=== PATIENT | female | born 1990 ===

== ENCOUNTER 2017-04-25 21:44 | Emergency (ER) | payer SELFPAY ==
[2017-04-25 21:51] VITALS: BP 145/86; PULSE 96; RESP 16; TEMP 97.9; O2SAT 100
[2017-04-25] MEDS ORDERED: Lidocaine 1% Inj (20ml) ONE (21:55)
--- NOTE | 2017-04-25 21:56 | ED PDOC ---
HPI: Wound Care - HPI Time Seen by Provider: 04/25/17 21:54 Chief Complaint (Nursing): Abnormal Skin Integrity Chief Complaint (Provider): finger laceration History Per: Patient Additional Complaint(s): 26 year old right hand dominant female presents to ED with laceration to right 3rd digit sustained when a dish broke in her hand while she was washing dishes. Patient applied pressure dressing and came right to ED. She denies any acute pain. Tetanus is up to date. She denies any numbness or tingling to affected area. Past Medical History Reviewed: Historical Data, Nursing Documentation, Vital Signs Vital Signs: Last Vital Signs Temp 97.9 F 04/25/17 21:47 Pulse 96 H 04/25/17 21:47 Resp 16 04/25/17 21:47 BP 145/86 04/25/17 21:47 Pulse Ox 100 04/25/17 21:47 - Medical History PMH: No Chronic Diseases - Surgical History Surgical History: No Surg Hx - Family History Family History: States: No Known Family Hx - Living Arrangements Living Arrangements: With Family - Social History Current smoker - smoking cessation education provided: No Alcohol: None Drugs: Denies - Immunization History Hx Tetanus Toxoid Vaccination: Yes - Allergies Allergies/Adverse Reactions: Allergies Allergy/AdvReac Type Severity Reaction Status Date / Time No Known Allergies Allergy Verified 04/25/17 21:47 Review of Systems ROS Statement: Except As Marked, All Systems Reviewed And Found Negative Musculoskeletal: Positive for: Other (right 3rd digit laceration) Physical Exam - Reviewed Nursing Documentation Reviewed: Yes Vital Signs Reviewed: Yes - Physical Exam Appears: Positive for: Well, Non-toxic, No Acute Distress Skin: Negative for: Rash Eye Exam: Positive for: Normal appearance Extremity: Positive for: Other (1.5 cm actively bleeding, superficial laceration noted to palmar aspect of right 4th digit, full rom of affected digit , normal distal sensation) Neurologic/Psych: Positive for: Alert, Oriented - ECG O2 Sat by Pulse Oximetry: 100 Pulse Ox Interpretation: Normal Procedure: Wound Repair - Time Performed Time Performed: 21:57 - Time Out Time Out: Side verified, Site verified, Patient ID confirmed, Sterile procedures obs. - Procedure Procedure: Wound Repair: Right 3rd digit laceration repair - Consent Obtained Consent obtained: Verbal - Performed by Performed by: Mid-level Provider - Indications Indication(s):: Laceration - Location Location:: Right Finger:: Middle Shape:: Curvilinear Dimensions Length cm: 1.5 Depth:: Epidermis - Anesthetic Technique Anesthetic Technique: Local Local/Regional Anesthetic:: Lidocaine 1% - Debris Debris:: None - Irrigated Irrigated with ml of normal saline: 30 - Complexity Complexity:: Simple (one layer) - Wound repair method Sutures:: # (5), Size (5-0), Type (nylon), Technique (simple interrupted) - Muscle repiar layer closed with Muscle repair layer closed with:: Abx ointment applied, Dressing applied, Tetanus up to date - Complications Complications: none - Patient tolerated procedure Patient Tolerated Procedure:: Well Medical Decision Making Medical Decision Makin26 year old with finger laceration Plan: Lac repair See procedure note. Patient was given detailed wound care instructions. Disposition - Clinical Impression Clinical Impression: Finger laceration - Patient ED Disposition Is Patient to be Admitted: No Counseled Patient/Family Regarding: Diagnosis, Need For Followup - Disposition Referrals: [facility] [Outside] Disposition Time: 22:16 Condition: STABLE Additional Instructions: Keep wound clean and dry. Advil or tylenol for pain as needed. Wound check 2- 3 days. Suture removal 14 days. Instructions: Finger Laceration (ED), Care For Your Stitches (ED) Forms: [employer] (Wol[place])
== END 2017-04-25 22:31 | disposition home or self-care (01) ==
LOC: H.ER 21:44
DX: S61.211A Laceration without foreign body of left index finger without damage to nail, initial encounter (principal); Y93.G1 Activity, food preparation and clean up; Y92.000 Kitchen of unspecified non-institutional (private) residence as the place of occurrence of the external cause